=== PATIENT | male | born 1960 | race Caucasian/White ===

== ENCOUNTER 2020-07-16 00:11 | Emergency (ER) | payer MEDICAID, OTHER ==
[~2020-07-16] VITALS: Ht 172.7 cm; Wt 60.0 kg
[2020-07-16 00:27] VITALS: BP 156/119
[2020-07-16] MEDS ORDERED: LIDOCAINE 1% INJ 20 ML 20 ML VIAL ONE (00:29)
[2020-07-16] MEDS ORDERED: TETANUS,DIPTH,PERTUSS P/F (BOOSTRIX) 0.5 ML VIAL IM ONE (00:30)
--- NOTE | 2020-07-16 00:30 | ED Integumentary General ---
General Chief Complaint: Laceration Stated Complaint: LEFT ARM LACEERATION Source: patient History of Present Illness Date Seen by Provider: Jul 16, 2020 Time Seen by Provider: 00:30 Initial Comments 60-year-old male presents with a laceration to his left forearm. Reports he was out drinking beer at his brother shot. He fell off the chair and hit a metal bench. He has a small 2.5 cm laceration he is unsure when his last tetanus was. He has no other complaints or concerns. Allergies and Home Medications Allergies Coded Allergies: No Known Drug Allergies (Unverified , 07/16/20) Patient Home Medication List Home Medication List Reviewed: Yes Review of Systems Review of Systems Constitutional: No chills, No fever EENTM: no symptoms reported Respiratory: no symptoms reported Cardiovascular: no symptoms reported Gastrointestinal: no symptoms reported Genitourinary: no symptoms reported Musculoskeletal: no symptoms reported Skin: see HPI Psychiatric/Neurological: No Symptoms Reported Past Qwqnlov-Nrrhlz-Doymrs Hx Past Med/Social Hx: Reviewed Nursing Past Med/Soc Hx Patient Social History Alcohol Use: Occasionally Uses Recreational Drug Use: No Smoking Status: Current Everyday Smoker Type Used: Cigarettes 2nd Hand Smoke Exposure: No Recent Foreign Travel: No Contact w/Someone Who Travel: No Physical Abuse: No Sexual Abuse: No Mistreated: No Fear: No Physical Exam Vital Signs Vital Signs - First Documented 07/16/20 00:27 Temp 36.2 Pulse 91 Resp 18 B/P (MAP) 156/119 (131) Pulse Ox 98 O2 Delivery Room Air Capillary Refill : Less Than 3 Seconds General Appearance: WD/WN, no apparent distress Cardiovascular: normal peripheral pulses, regular rate, rhythm Respiratory: lungs clear, normal breath sounds Gastrointestinal: non tender, soft Skin Problem Location: upper extremities Skin Problem Character: linear, other (laceration left forearm, 2.5cm ) Procedures/Interventions Wound Location: Upper Extremities Wound Length (cm): 2.5 Wound's Depth, Shape: superficial Wound Explored: no foreign body removed Betadine Prep?: Yes Anesthesia: 1% Lidocaine Volume Anesthetic (ccs): 2 Wound Debrided: minimal Suture: Plain Suture Size: 3-0 Number of Sutures: 3 Sterile Dressing Applied?: Yes Progress Patient tolerated well with no immediate complications Progress/Results/Core Measures Results/Orders My Orders Orders - DRE CHACKO DO Lidocaine 1% Inj 20 Ml (Xylocaine 1% Inj (07/16/20 00:29) Medications Given in ED Current Medications Medications Dose Ordered Sig/Kenny Route Start Time Stop Time Status Last Admin Dose Admin Lidocaine HCl 20 ml STK-MED ONCE .ROUTE 07/16/20 00:29 07/16/20 00:34 DC 07/16/20 00:35 20 ML Vital Signs/I&O 07/16/20 00:27 Temp 36.2 Pulse 91 Resp 18 B/P (MAP) 156/119 (131) Pulse Ox 98 O2 Delivery Room Air Departure Impression Primary Impression: Laceration of left forearm without foreign body Qualified Codes: S51.812A - Laceration without foreign body of left forearm, initial encounter Disposition: HOME, SELF-CARE Condition: Stable Departure-Patient Inst. Referrals: SELF,HOLLY WADDELL (PCP/Family) Primary Care Physician Patient Instructions: Laceration Repair With Stitches (DC) Add. Discharge Instructions: Return to the ER in approximately 10 days for suture removal Keep clean with warm soapy water All discharge instructions reviewed with patient and/or family. Voiced understanding. DRE CHACKO DO Jul 16, 2020 00:30
== END 2020-07-16 00:58 | disposition home or self-care (01) ==
LOC: ER FS 00:17
DX: S51.812A Laceration without foreign body of left forearm, initial encounter (principal); F17.210 Nicotine dependence, cigarettes, uncomplicated; Z23 Encounter for immunization; W07.XXXA Fall from chair, initial encounter; W22.8XXA Striking against or struck by other objects, initial encounter
CPT/HCPCS: 12042; 90715

== ENCOUNTER 2021-07-22 23:05 | Emergency (ER) | payer MEDICAID ==
--- NOTE | 2021-07-22 23:20 | ED General ---
General Chief Complaint: Psych/Social Disorder Stated Complaint: MENTAL HEALTH SCREEN Source of Information: Patient, Police Exam Limitations: No Limitations (VIANNEY BRYANT DO) History of Present Illness Date Seen by Provider: Jul 22, 2021 Time Seen by Provider: 23:20 Initial Comments Patient is a 60-year-old male with history of chronic alcoholism who presents with suicidal ideation. Patient had a fight with his son earlier this evening regarding this and drinking his last beer. Patient called 911 and was found by police with a knife in his bed. Patient states he was planning to kill himself. Denies thoughts and feelings of self-harm prior to verbal altercation with his son. The patient's son is also an alcoholic and he and his family live with patient. Patient denies homicidal ideation, paranoia or delusions and hallucinations. No chest pain palpitation shortness of breath. No other acute symptoms or complaints. Arrives by police. Timing/Duration: 1-3 Hours Severity: Moderate Modifying Factors: improves with Other Associated Systoms: Other (VIANNEY BRYANT DO) Allergies and Home Medications Allergies Coded Allergies: No Known Drug Allergies (Unverified , 07/16/20) Patient Home Medication List Home Medication List Reviewed: Yes (VIANNEY BRYANT DO) Review of Systems Review of Systems Constitutional: see HPI EENTM: see HPI Respiratory: see HPI Cardiovascular: see HPI Gastrointestinal: see HPI Genitourinary: see HPI Musculoskeletal: see HPI Skin: see HPI Psychiatric/Neurological: See HPI Hematologic/Lymphatic: See HPI Immunological/Allergic: see HPI (VIANNEY BRYANT DO) All Other Systems Reviewed Negative Unless Noted: Yes (VIANNEY BRYANT DO) Past Nndzozn-Nvraan-Vocwuh Hx Patient Social History Tobacco Use?: Yes (VIANNEY BRYANT DO) Physical Exam Vital Signs Vital Signs - First Documented 07/22/21 23:12 Pulse 98 Resp 18 B/P (MAP) 133/81 (98) Pulse Ox 98 O2 Delivery Room Air (PAULO SCANLON DO) Vital Signs Capillary Refill : (VIANNEY BRYANT DO) Height, Weight, BMI Height: '" Weight: lbs. oz. kg; 20.00 BMI Method: General Appearance: No Apparent Distress, Anxious, Other (Disheveled) Eyes: Bilateral Eye Normal Inspection, Bilateral Eye PERRL, Bilateral Eye EOMI HEENT: Pharynx Normal Neck: Normal Inspection Respiratory: Lungs Clear Cardiovascular: Regular Rate, Rhythm Gastrointestinal: Soft Neurologic/Psychiatric: Alert, Oriented x3, No Motor/Sensory Deficits (VIANNEY BRYANT DO) Focused Exam Sepsis Stage: Ruled Out (VIANNEY BRYANT DO) Procedures/Interventions Suture Size: 3-0 (VIANNEY BRYANT DO) Progress/Results/Core Measures Suspected Sepsis SIRS Temperature: Pulse: Respiratory Rate: Laboratory Tests 07/22/21 23:23: Blood Pressure / Mean: Laboratory Tests 07/22/21 23:23: (VIANNEY BRYANT DO) Results/Orders Lab Results Laboratory Tests Test 07/22/21 23:23 07/22/21 23:24 07/23/21 01:24 07/23/21 04:00 Range/Units White Blood Count 13.3 H 4.3-11.0 10^3/uL Red Blood Count 4.61 4.30-5.52 10^6/uL Hemoglobin 15.0 13.3-17.7 g/dL Hematocrit 44 40-54 % Mean Corpuscular Volume 96 80-99 fL Mean Corpuscular Hemoglobin 33 25-34 pg Mean Corpuscular Hemoglobin Concent 34 32-36 g/dL Red Cell Distribution Width 12.6 10.0-14.5 % Platelet Count 183 130-400 10^3/uL Mean Platelet Volume 9.8 9.0-12.2 fL Immature Granulocyte % (Auto) 0 % Neutrophils (%) (Auto) 69 42-75 % Lymphocytes (%) (Auto) 23 12-44 % Monocytes (%) (Auto) 5 0-12 % Eosinophils (%) (Auto) 2 0-10 % Basophils (%) (Auto) 1 0-10 % Neutrophils # (Auto) 9.2 H 1.8-7.8 X 10^3 Lymphocytes # (Auto) 3.0 1.0-4.0 X 10^3 Monocytes # (Auto) 0.7 0.0-1.0 X 10^3 Eosinophils # (Auto) 0.3 0.0-0.3 10^3/uL Basophils # (Auto) 0.1 0.0-0.1 10^3/uL Immature Granulocyte # (Auto) 0.0 0.0-0.1 10^3/uL Sodium Level 136 135-145 MMOL/L Potassium Level 3.7 3.6-5.0 MMOL/L Chloride Level 102 98-107 MMOL/L Carbon Dioxide Level 21 21-32 MMOL/L Anion Gap 13 5-14 MMOL/L Blood Urea Nitrogen 8 7-18 MG/DL Creatinine 0.96 0.60-1.30 MG/DL Estimat Glomerular Filtration Rate 79 BUN/Creatinine Ratio 8 Glucose Level 94 70-105 MG/DL Calcium Level 9.3 8.5-10.1 MG/DL Corrected Calcium 9.2 8.5-10.1 MG/DL Total Bilirubin 0.2 0.1-1.0 MG/DL Aspartate Amino Transf (AST/SGOT) 26 5-34 U/L Alanine Aminotransferase (ALT/SGPT) 25 0-55 U/L Alkaline Phosphatase 94 40-136 U/L Total Protein 7.4 6.4-8.2 GM/DL Albumin 4.1 3.2-4.5 GM/DL Salicylates Level < 0.3 L 5.0-20.0 MG/DL Acetaminophen Level < 10 L 10-30 UG/ML Serum Alcohol 161 H 130 H 79 H <10 MG/DL Urine Color STRAW Urine Clarity CLEAR Urine pH 6.0 5-9 Urine Specific [place] <=1.005 1.016-1.022 Urine Protein NEGATIVE NEGATIVE Urine Glucose (UA) NEGATIVE NEGATIVE Urine Ketones NEGATIVE NEGATIVE Urine Nitrite NEGATIVE NEGATIVE Urine Bilirubin NEGATIVE NEGATIVE Urine Urobilinogen 0.2 < = 1.0 MG/DL Urine Leukocyte Esterase NEGATIVE NEGATIVE Urine RBC (Auto) NEGATIVE NEGATIVE Urine RBC NONE /HPF Urine WBC NONE /HPF Urine Squamous Epithelial Cells NONE /HPF Urine Crystals NONE /LPF Urine Bacteria NEGATIVE /HPF Urine Casts NONE /LPF Urine Mucus NEGATIVE /LPF Urine Culture Indicated NO Urine Opiates Screen NEGATIVE NEGATIVE Urine Oxycodone Screen NEGATIVE NEGATIVE Urine Methadone Screen NEGATIVE NEGATIVE Urine Propoxyphene Screen NEGATIVE NEGATIVE Urine Barbiturates Screen NEGATIVE NEGATIVE Ur Tricyclic Antidepressants Screen NEGATIVE NEGATIVE Urine Phencyclidine Screen NEGATIVE NEGATIVE Urine Amphetamines Screen NEGATIVE NEGATIVE Urine Methamphetamines Screen NEGATIVE NEGATIVE Urine Benzodiazepines Screen POSITIVE H NEGATIVE Urine Cocaine Screen NEGATIVE NEGATIVE Urine Cannabinoids Screen NEGATIVE NEGATIVE (PAULO SCANLON DO) Vital Signs/I&O 07/22/21 23:12 Pulse 98 Resp 18 B/P (MAP) 133/81 (98) Pulse Ox 98 O2 Delivery Room Air (PAULO SCANLON DO) Vital Signs/I&O Capillary Refill : (BRYANT,VIANNEY DO) Departure Communication (Admissions) EKG: Sinus rhythm, rate 86, no acute ST-T wave changes. Labs and EKG reviewed. (VIANNEY BRYANT DO) Impression Primary Impression: Depression Additional Impression: Alcohol intoxication Disposition: 01 HOME, SELF-CARE Condition: Improved Departure-Patient Inst. Decision time for Depature: 09:54 (PAULO SCANLON DO) Referrals: SELF,HOLLY WADDELL (PCP/Family) Primary Care Physician Patient Instructions: Alcohol Intoxication ED Add. Discharge Instructions: Follow up with the [facility] tomorrow as scheduled for you @ 1889 All discharge instructions reviewed with patient and/or family. Voiced understanding. VIANNEY BRYANT DO Jul 22, 2021 23:20 PAULO SCANLON DO Jul 23, 2021 09:55
[2021-07-22 23:41] LABS: CLARITY,URINE CLEAR; COLOR,URINE STRAW
[2021-07-22 23:42] LABS: HEMATOCRIT 44 % (40-54); MEAN CORPUSCULAR HEMOGLOBIN 33 pg (25-34); MEAN CORPUSCULAR HGB CONC 34 g/dL (32-36); MEAN CORPUSCULAR VOLUME 96 fL (80-99); MEAN PLATELET VOLUME 9.8 fL (9.0-12.2); PLATELET COUNT 183 10^3/uL (130-400); WHITE BLOOD COUNT 13.3 10^3/uL (4.3-11.0)
[2021-07-22 23:42] LABS: AMPHETAMINE SCREEN, URINE NEGATIVE (NEGATIVE); BACTERIA,URINE NEGATIVE /HPF; BARBITURATE SCREEN URINE NEGATIVE (NEGATIVE); BENZODIAZEPINES SCREEN URINE POSITIVE (NEGATIVE); BILIRUBIN,URINE NEGATIVE (NEGATIVE); CANNABINOID SCREEN, URINE NEGATIVE (NEGATIVE); COCAINE SCREEN URINE NEGATIVE (NEGATIVE); GLUCOSE, URINE (UA) NEGATIVE (NEGATIVE); KETONES,URINE NEGATIVE (NEGATIVE); LEUKOCYTE ESTERASE ,URINE NEGATIVE (NEGATIVE); METHADONE STAT NEGATIVE (NEGATIVE); METHAMPHETAMINE SCREEN URINE S NEGATIVE (NEGATIVE); NITRITE,URINE NEGATIVE (NEGATIVE); OPIATE SCREEN URINE NEGATIVE (NEGATIVE); OXYCODONE STAT NEGATIVE (NEGATIVE); PROPOXYPHENE STAT NEGATIVE (NEGATIVE); PROTEIN,URINE NEGATIVE (NEGATIVE); TRICYCLIC ANTIDEPRESSANTS SCRE NEGATIVE (NEGATIVE)
[2021-07-22 23:43] LABS: BASOPHILS # (AUTO) 0.1 10^3/uL (0.0-0.1); BASOPHILS % (AUTO) 1 % (0-10); EOSINOPHILS # (AUTO) 0.3 10^3/uL (0.0-0.3); EOSINOPHILS % (AUTO) 2 % (0-10); LYMPHOCYTES % (AUTO) 23 % (12-44); MONOCYTES # (AUTO) 0.7 X 10^3 (0.0-1.0); MONOCYTES % (AUTO) 5 % (0-12); NEUTROPHILS # (AUTO) 9.2 X 10^3 (1.8-7.8); NEUTROPHILS % (AUTO) 69 % (42-75)
[2021-07-22 23:48] LABS: ACETAMINOPHEN < 10 UG/ML (10-30); SALICYLATE < 0.3 MG/DL (5.0-20.0)
[2021-07-22 23:49] LABS: ALBUMIN 4.1 GM/DL (3.2-4.5); BILIRUBIN,TOTAL 0.2 MG/DL (0.1-1.0); CALCIUM 9.3 MG/DL (8.5-10.1); CREATININE SERUM 0.96 MG/DL (0.60-1.30); POTASSIUM 3.7 MMOL/L (3.6-5.0); TOTAL PROTEIN 7.4 GM/DL (6.4-8.2)
[2021-07-23 10:04] VITALS: BP 137/81
== END 2021-07-23 10:00 | disposition home or self-care (01) ==
LOC: EDUNIT# 23:05 → ER FS 23:09
DX: F32.9 Major depressive disorder, single episode, unspecified (principal); F10.229 Alcohol dependence with intoxication, unspecified; Y90.6 Blood alcohol level of 120-199 mg/100 ml
CPT/HCPCS: 36415 ×2; 80053; 80306; 81000; 85025; 93005; 99283; G0480 ×4; 80320; 80329